=== PATIENT | male | born 1945 | race Caucasian/White ===

== ENCOUNTER 2021-02-07 12:32 | Outpatient (CLI) | payer MEDICARE, SELFPAY | END 2021-02-07 12:33 | disposition home or self-care (01) | PROVIDERS: Visit Provider Specialist | DX: L28.1 Prurigo nodularis (principal) | CPT/HCPCS: 88305 ==

== ENCOUNTER 2022-03-27 10:12 | Outpatient (CLI) | payer MEDICARE, SELFPAY | END 2022-03-27 10:13 | disposition home or self-care (01) | LOC: CHSLAB 10:16 | PROVIDERS: PCP Specialist; Visit Provider Specialist | DX: C43.59 Malignant melanoma of other part of trunk (principal) | CPT/HCPCS: 88305; 88342 ==